=== PATIENT | female | born 1995 | race Caucasian/White ===

== ENCOUNTER 2019-08-18 17:16 | Emergency (ER) | payer OTHER, SELFPAY ==
[2019-08-18 18:37] VITALS: BP 139/69; PULSE 98; RESP 20; TEMP 36.6; O2SAT 100
--- NOTE | 2019-08-18 19:27 | ED.GENADULT ---
HPI - General Adult General Chief complaint: Nausea/Vomiting/Diarrhea Stated complaint: fever/vomiting Time Seen by Provider: 08/18/19 19:28 Source: patient Mode of arrival: ambulatory Limitations: no limitations History of Present Illness HPI narrative: 23-year-old female patient presents to the [facility] with complaints of nausea vomiting low-grade fevers that started approximately 3 hours ago. Patient states she has had some slight abdominal cramping. Patient states that her last period was July 17 that she should be starting any day now. Patient states that she is sexually active. Patient denies any coughing, runny nose, body aches, chills. Patient states that she did get a flu shot this year. Patient states she has been taking some Tylenol for her fever. Patient's last bowel movement was yesterday and normal. Related Data Home Medications Medication Instructions Recorded Confirmed risperidone 1 mg PO BID 08/18/19 08/18/19 Allergies Allergy/AdvReac Type Severity Reaction Status Date / Time No Known Allergies Allergy Verified 08/18/19 19:00 Review of Systems Review of Systems: Narrative: CONSTITUTIONAL: Positive subjective low-grade fever, denying chills, or sweats. EYES: Denies visual changes, redness, or discharge. ENT: Denies rhinorrhea, congestion, sore throat, or otalgia. CARDIOVASCULAR: Denies chest pain, palpitations, or edema. RESPIRATORY: Denies cough or dyspnea. GASTROINTESTINAL: Denies abdominal pain, positive nausea, vomiting, denies diarrhea. GENITOURINARY: Denies dysuria or hematuria. SKIN: Denies rash or itching. MUSCULOSKELETAL: Denies back pain, joint pain, or myalgia. NEUROLOGIC: Denies headache, numbness, or weakness. PSYCHIATRIC: Denies anxiety or depression. PMFSH Comments At the time of my signature I agree with nursing past medical history, surgical, social, and family history. There is no relevant family history pertinent to the presenting complaint. Exam Narrative: Exam Narrative: GENERAL: Well-appearing, well-nourished, and in no acute distress. HEAD: Normocephalic, atraumatic. EYES: PERRLA and EOMI. ENT: Nares clear, no rhinorrhea or epistaxis. Mucous membranes moist. NECK: Supple. No lymphadenopathy CHEST: Clear to auscultation. No respiratory distress. HEART: Regular rate and rhythm. No murmur heard. Normal peripheral pulses. ABDOMEN: Soft, flat, nondistended. No guarding, rebound tenderness, or rigid. No pulsatilla masses. Bowel sounds present in all four quadrants. No organomegaly. Negative Shannon?s sign. No periumbicial tenderness. No Supra public tenderness or distension. Good femoral pulses bilaterally. No hernia noted. No scars or surface trauma. No CVA tenderness on percussion. EXTREMITIES: Normal range of motion. No edema. SKIN: Warm, dry, no rash. NEURO: No focal deficits. Alert and oriented x3. Course Vital Signs Vital signs: Vital Signs Temperature 36.6 C 08/18/19 18:37 Pulse Rate 98 08/18/19 18:37 Respiratory Rate 20 08/18/19 18:37 Blood Pressure 139/69 08/18/19 18:37 Pulse Oximetry 100 08/18/19 18:37 Temperature 36.6 C 08/18/19 18:37 Pulse Rate 98 08/18/19 18:37 Respiratory Rate 20 08/18/19 18:37 Blood Pressure 139/69 08/18/19 18:37 Pulse Oximetry 100 08/18/19 18:37 Vital signs reviewed. Medical Decision Making Differential Diagnosis Differential Diagnosis: Differential diagnosis: Appendicitis, ovarian torsion, gallbladder disease, ovarian torsion, pancreatitis, lower lobe pneumonia,AAA, AMI or ACS, DKA, diverticulitis. Allergic rhinitis, chronic sinusitis, tonsillitis, acute sinusitis, infectious mononucleosis, seasonal influenza, pertussis, diphtheria, meningococcal disease, viral syndrome, viral bronchitis, RSV. Discussed with patient that her test is negative today. Discussed with her that this is most likely some type of virus that is possibly causing her symptoms. Discussed with patient we will disch
== END 2019-08-18 19:41 | disposition home or self-care (01) ==
PROVIDERS: Emergency Provider Nurse Practitioner Family; PCP Internal Medicine
DX: R11.2 Nausea with vomiting, unspecified (principal); F31.9 Bipolar disorder, unspecified
CPT/HCPCS: 81025; 99213; G0463

== ENCOUNTER 2020-08-19 17:16 | Emergency (ER) | payer OTHER, SELFPAY ==
--- NOTE | ~2020-08-19 | XR_ITS ---
EXAMINATION: XR shoulder LT min 2V INDICATION: Left shoulder pain TECHNIQUE: Five views of the left shoulder are submitted. COMPARISON: None FINDINGS: Normal alignment. No fracture. Glenohumeral and acromioclavicular joint spaces are normal. Soft tissues are unremarkable. IMPRESSION: 1. No acute osseous abnormality. Reviewed, dictated and finalized at location A. A SERVICES COORDINATOR
[2020-08-19 17:32] VITALS: BP 139/73; PULSE 90; RESP 20; TEMP 36.8; O2SAT 97
--- NOTE | 2020-08-19 17:42 | ED.EXTPRO ---
HPI - Extremity Problem General Chief complaint: Extremity Problem,Nontraumatic Stated complaint: Lt shoulder pain Time Seen by Provider: 08/19/20 17:35 Source: patient Mode of arrival: ambulatory Limitations: no limitations History of Present Illness HPI Narrative: Angie Kathleen is a 24 yo female with no PMH who comes to [facility] with left shoulder pain that started 4 to 5 days ago. She denies heavy lifting but states that her cat jumped on her shoulder from a high height she is used Tylenol, ibuprofen, icy hot with with little change. She developed a rash IcyHot. She is not able to lift her arm above 90 degrees without pain and when she moves her arm forward she has popping in her left clavicle area Related Data Home Medications Medication Instructions Recorded Confirmed lorazepam 0.5 mg PO Q6H PRN 08/19/20 08/19/20 Allergies Allergy/AdvReac Type Severity Reaction Status Date / Time No Known Allergies Allergy Verified 08/19/20 17:30 Review of Systems Review of Systems: Narrative: CONSTITUTIONAL: Denies fever, chills, sweats. EYES: Denies visual changes, redness, discharge. ENT: Denies rhinorrhea, congestion, sore throat, otalgia. CARDIOVASCULAR: Denies chest pain, palpitations, edema. RESPIRATORY: Denies dyspnea, wheezing, cough GASTROINTESTINAL: Denies abdominal pain, nausea, vomiting, diarrhea. GENITOURINARY: Denies dysuria, hematuria, abnormal discharge SKIN: Denies rash or itching. NEUROLOGIC: Denies numbness, or focal weakness. PSYCHIATRIC: Denies anxiety or depression. Left shoulder and clavicle discomfort, is 8 out of 10 PMFSH Past Medical History Medical History No acute medical problems Family History Family History Other Diabetes mellitus Social History Social History (Updated 08/19/20 @ 17:45 by Renetta Gary CNP) Smoking status: Never smoker Alcohol intake: current Comments At time of signature, I agree with nursing past medical, surgical, social and family history. There is no relevant family history pertinent to the presenting complaint. Exam Narrative: Exam Narrative: GENERAL: This is a well-nourished, well-developed patient, in mild distress. HEAD: normocephalic, atraumatic. EYES: Sclera clear/white. Vision is grossly intact. EARS: External ears normal, Hearing grossly intact. NOSE: External nose normal without nasal discharge, nares without redness, no rhinorrhea. THROAT: Mucous membranes moist, NECK: Neck supple, mild tender at base on L CARDIOVASCULAR: Regular rate and rhythm without murmurs, gallops, or rubs. RESPIRATORY: Clear to auscultation. Breath sounds equal bilaterally. No wheezes, rales, or rhonchi. GASTROINTESTINAL: Abdomen soft, non-tender, SKIN: warm, intact NEURO: awake, alert, and oriented to person, place and time. There were no obvious focal neurologic abnormalities. Steady gait EXTREMITIES: Normal range of motion. L shoulder pain, pain with lifting arm above 90 degrees, crackles when lifted arm moves forward BACK: Nontender without deformity Course Course Emergency Course: Comes to [facility] with left shoulder pain, started 4 to 5 days ago, unknown etiology states ibuprofen, Tylenol, IcyHot have not helped the pain X-rays of the left shoulder showed-no acute osseous abnormality the glenohumeral and AC joint spaces are normal soft tissues are unremarkable Given torad[facility] mg [facility] At discharge started on baclofen, [id number] with PCP Vital Signs Vital signs: Vital Signs Temperature 98.3 F 08/19/20 17:32 Pulse Rate 90 08/19/20 17:32 Respiratory Rate 20 08/19/20 17:32 Blood Pressure 139/73 08/19/20 17:32 Pulse Oximetry 97 08/19/20 17:32 Temperature 98.3 F 08/19/20 17:32 Pulse Rate 90 08/19/20 17:32 Respiratory Rate 20 08/19/20 17:32 Blood Pressure 139/73 08/19/20 17
[2020-08-19] MEDS: KETOROLAC (*BKC) 60 MG/2 ML VIAL IM (18:21)
== END 2020-08-19 18:45 | disposition home or self-care (01) ==
PROVIDERS: Emergency Provider Nurse Practitioner; PCP Internal Medicine
DX: M25.512 Pain in left shoulder (principal)
CPT/HCPCS: 73030; 96372; 99213; G0463; J1885